=== PATIENT | female | born 1945 ===

== ENCOUNTER 2018-08-28 11:41 | Outpatient (CLI) | payer MEDICARE ==
--- NOTE | 2018-08-28 14:24 | Mammography Report ---
BONE DENSITY STUDY: DEFINITIONS: BMD = Bone Mineral Density T-score = BMD related to mean peak bone mass of young adult (mean expressed in Standard Deviation) Z-score = Age matched BMD expressed in SD World Health Organization (WHO) Diagnostic Criteria Normal T-score > -1 SD Osteopenia T-score between -1 and -2.4 SD Osteoporosis T-score -2.5 SD or below FINDINGS: The weighted average BMD of lumbar spine L1-L4 is 0.840 with a T-score of -2.8. The weighted average BMD of hip is 0.890 with a T-score of -0.9. IMPRESSION: The patient's T-score is diagnostic for osteoporosis and high relative risk for fracture. NOTE: BMD is not the only risk factor for fracture; also consider factors such as the patient's age, risk of falling, previous osteoporotic fracture, family history of osteoporotic fractures, current smoker, and low body weight. Arce's triangle is a region of interest in femur, predominantly of trabecular bone. It is not a true anatomic site, and [facility] does not recommend its use clinically.
== END 2018-08-28 11:42 | disposition home or self-care (01) ==
LOC: SPVWC 11:41
PROVIDERS: ATTEND Nurse Practitioner Family
DX: Z13.820 Encounter for screening for osteoporosis (principal); M81.0 Age-related osteoporosis without current pathological fracture
CPT/HCPCS: 77080